=== PATIENT | female | born 1935 | race Caucasian/White ===

== ENCOUNTER 2024-12-25 11:57 | Emergency (ER) | payer MEDICARE, OTHER, SELFPAY ==
[2024-12-25 12:00] VITALS: BP 124/76
[2024-12-25 12:24] LABS: % Basophils 0.3 % (0-2); % Eosinophils 1.8 % (0-6); % Immature Granulocytes 0.3 % (0-0.5); % Lymphocytes 9.1 % (20.5-51.1); % Monocytes 6.9 % (1.7-9.3); % Neutrophils 81.6 % (42.2-75.2); Absolute Eosinophils 0.1 10^3/uL (0-0.7); Absolute Lymphocytes 0.6 10^3/uL (1.2-3.4); Absolute Monocytes 0.5 10^3/uL (0.1-0.6); Absolute Neutrophils 5.6 10^3/uL (1.4-6.5); Hematocrit 35.3 % (37.0-47.0); Hemoglobin 11.9 g/dL (12.0-16.0); Mean Corp Hgb Conc. 33.7 g/dL (33.0-37.0); Mean Corpuscular Hgb 30.7 pg (27.0-31.0); Nucleated Red Blood Cells % 0 %; Red Blood Cell Count 3.88 10^6/uL (4.20-5.40); Red Cell Dist. Width 13.2 % (11.5-14.5); White Blood Cell Count 6.8 10^3/uL (4.8-10.8)
[2024-12-25 12:32] LABS: ALT (SGPT) 13 U/L (0-35); AST (SGOT) 19 U/L (14-36); Albumin 4.2 g/dl (3.5-5.0); Alkaline Phosphatase 81 U/L (38-126); Blood Urea Nitrogen 14 mg/dl (7-17); Calcium 9.5 mg/dl (8.4-10.2); Carbon Dioxide 28 mmol/L (22-30); Chloride 98 mmol/L (98-107); Glucose 135 mg/dl (70-99); Sodium 135 mmol/L (135-145); Total Bilirubin 1.2 mg/dl (0.2-1.3); Total Protein 6.6 g/dl (6.3-8.2); eGFR > 60.00
[2024-12-25 13:26] LABS: Mean Platelet Volume 10.7 fL (7.4-10.4); Platelet Count 83 10^3/uL (130-400)
[2024-12-25] MEDS: NSS 1000 IV (15:44)
[2024-12-25] MEDS: ZOFRAN 4 MG IV (15:45)
--- NOTE | 2024-12-25 15:47 | ED.GENMED ---
History of Present Illness
General
Chief Complaint: Dizziness
Source: patient and family
Exam Limitations: none
Time Seen by Provider: 12/25/24 15:07
Nursing documentation reviewed up to this point in time: agreed with
History of Present Illness
History of Present Illness:
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
vomiting. Denies chest pain shortness of breath numbness weakness symptoms resolved and resting
Review of Systems
Review of Systems
Allergies reviewed?: Yes
All Other Systems: ROS reviewed and negative except as documented in HPI and ROS
Phy Exam
Physical Exam
Physical Exam:
GENERAL: Alert , in no apparent distress
EYE: pupils equal and reactive
NECK: Supple, no significant adenopathy.
ENT: o/p clr, mmm.
CARDIAC: Regular rate and rhythm .
LUNGS: Clear breath sounds bilaterally, no acute respiratory distress, no wheezes/rales/rhonchi
ABDOMEN: Soft, without focal tenderness, no r/g, no cvat
NEUROLOGICAL: Alert and oriented, no focal neuro deficits 5 out of 5 upper and lower extremity strength normal sensation with palpating bilaterally normal finger-nose and [id number] no pronator drift
SKIN: Warm and dry, skin intact.
MUSCULOSKELETAL: No edema, well perfused.
PSYCH: Normal and appropriate interaction.
Course
Orders/Labs/Results
Orders:
Orders
12/25/24 12:03
EKG [Electrocardiogram (*1)] Urgent
Reason for Study: Vertigo / Dizzy
12/25/24 12:04
EKG- Treatment ONCE
12/25/24 12:11
CBC/With Diff [Complete Blood Count/With Diff] Urgent
Comprehensive Metabolic Panel Urgent
12/25/24 15:37
CT Head W/o Iv Contrast Urgent
Comment:
Reason For Exam: dizzy hx of CA/mets
0.9% Sodium Chloride 1000 ml [Nss] 1,000 ml IV BOLUS
Ondansetron Injectable [Zofran] 4 mg IV NOW STA
Pt Eval And Treat Urgent
Activity Level: Ambulate
12/25/24 17:03
Urinalysis Reflex To Culture Urgent
Date Specimen was Collected: 12/25/24
Time Specimen was Collected: 16:52
Urine Microscopic Reflex Cult Urgent
Urine Culture Urgent
AMANDA Source: U
Specimen Description:
Date Specimen was Collected: 12/25/24
Time Specimen was Collected: 16:52
12/25/24 17:34
Meclizine [Antivert] 25 mg PO NOW STA
Abnormal Lab Results
12/25/24 12/25/24
12:11 17:03
RBC 3.88 L 10^6/uL
(4.20-5.40)
Hgb 11.9 L g/dL
(12.0-16.0)
Hct 35.3 L %
(37.0-47.0)
Plt Count 83 L 10^3/uL
(130-400)
MPV 10.7 H fL
(7.4-10.4)
Absolute Lymphs (auto) 0.6 L 10^3/uL
(1.2-3.4)
Neutrophils % 81.6 H %
(42.2-75.2)
Lymphocytes % 9.1 L %
(20.5-51.1)
Glucose 135 H mg/dl
(70-99)
Ur Occult Blood Reflex 4+ A
(Negative)
Urine Nitrite (Reflex) Positive A
(Negative)
Leukocyte Esterase Rfl 3+ A
(Negative)
Urine RBC 16-20 A /HPF
(0-2)
Urine WBC (Reflex) 80-90 A /HPF
(0-5)
Urine Bacteria (Reflex) Many A
(Negative)
Urine Albumin (Reflex) 2+ A
(Neg - Trace)
12/25/24 12:11
12/25/24 12:11
Vital Signs
Initial and Last Documented VS:
Initial Vital Signs
Temp Pulse Resp BP Pulse Ox
98 F 96 16 124/76 98
12/25/24 12:00 12/25/24 12:00 12/25/24 12:00 12/25/24 12:00 12/25/24 12:00
Last Documented Vital Signs
Temp Pulse Resp BP Pulse Ox
98 F 81 20 132/78 98
12/25/24 12:00 12/25/24 18:30 12/25/24 18:30 12/25/24 18:00 12/25/24 18:30
MDM/Problems Addressed
MDM/Problems Addressed:
89-year-old female presenting to the emergency department today with concerns of room spinning dizziness starting yesterday morning associated nausea no vomiting no chest pain or shortness of breath. On arrival vital signs are normal patient no
distress asymptomatic while sitting still. Labs unremarkable. EKG normal. CT without emergent findings urinalysis potentially consistent with UTI patient was started on Keflex. Otherwise here patient was given symptomatic treatment. She was
initially assessed by PT and they were concerned that she was having some ongoing symptoms. She would become asymptomatic at rest and gets symptoms only with certain positioning's making central process less likely. She was then given meclizine
and claims that the symptoms were significantly improved and felt well she was requesting to go home. It was explained to her that some of the findings on her exam had some concern that may require additional testing. It was recommended to stay in
the hospital. She demonstrated strong desire to go home risks of this were discussed with the patient she will be leaving with her daughter who will be staying with her and able to help her 05/05. If any symptoms worsen she claimed that she would
immediately return otherwise we will follow-up closely as an outpatient.
*Critical Care Note
Total Time (30-74mins, 75-104mins- exclusive of procedures): Not Applicable
ED Attending Note
-
Portions of this chart may have been created with voice recognition software.� Occasional wrong word or��sound alike� substitutions may have occurred due to the inherent limitations of voice recognition software.
Discharge Plan
Departure
Patient Disposition: Home (Routine Discharge)
Date of Disposition: 12/25/24
Time of Disposition: 19:01
Patient with high blood pressure during this ER visit?: No
Condition: Good
Covid-19: Not Applicable
Discharge Problem:
Vertigo, Acute UTI
Instructions: Vertigo (a Type of Dizziness) (DC), Urinary tract infection - Discharge instructions
Prescriptions:
New
meclizine 50 mg tablet
50 mg PO BID PRN (Reason: dizziness) Qty: 10 0RF
cephalexin 500 mg capsule
500 mg PO TID 5 Days Qty: 15 0RF
Referrals:
Glenn Olivares MD [Active] - Follow up in 1 week
UNKNOWN - PT DOES,NOT KNOW [Family Provider] -
Activity Restrictions/Additional Instructions:
You came to the emergency department today for concerns of dizziness. Here you had a reassuring assessment with CT scan and labs. You did have improvement of symptoms here. If symptoms are worsening or progressing at any point please immediately
return to the ER. Otherwise follow-up closely with ENT. He also may have a UTI. Please take Keflex 3 times daily for the next 5 days and follow-up closely as an outpatient. Return for any worsening, new or concerning symptoms.
Interventions
Interventions:
*Risk Screen - Suicide Last Done: 12/25/24 12:00
*General Assessment Last Done: 12/25/24 15:51
*Neglect/Abuse Screening Last Done: 12/25/24 12:00
*ED- Fall Risk Assessment Last Done: 12/25/24 15:51
*ED COVID-19 Vaccine History Last Done: 12/25/24 15:51
ED- Neurological Assessment Last Done: 12/25/24 15:55
ED- Cardiac Assessment Last Done: 12/25/24 15:55
Discharge Date and Time
Print Language: PAKISTANI
[2024-12-25 15:49] VITALS: BP 113/76
[2024-12-25 15:51] VITALS: BMI 22.3
[2024-12-25 16:00] VITALS: BP 118/71
[2024-12-25 16:46] VITALS: BP 130/71
[2024-12-25 16:54] VITALS: BP 162/83
[2024-12-25 17:21] LABS: Urine Albumin 2+ (Neg - Trace); Urine Bilirubin Negative (Negative); Urine Character Slightly Cloudy (Clear); Urine Color Yellow; Urine Glucose Negative (Negative); Urine Ketone Negative (Negative); Urine Leukocyte 3+ (Negative); Urine Nitrite Positive (Negative); Urine Occult Blood 4+ (Negative); Urine Specific Gravity 1.015 (<1.030); Urine Urobilinogen Negative (Neg - 1+); Urine pH 6.5 (5.0-9.0)
[2024-12-25 17:26] LABS: Urine Amorphous Seen; Urine Squamous Cell 0-2 /LPF (Few)
[2024-12-25 17:27] LABS: Urine Bacteria Many (Negative); Urine Red Blood Cell 16-20 /HPF (0-2); Urine White Cell 80-90 /HPF (0-5)
[2024-12-25] MEDS: ANTIVERT 25 MG PO (17:37)
[2024-12-25 18:00] VITALS: BP 132/78
== END 2024-12-25 19:16 | disposition home or self-care (01) ==
LOC: EMR 11:57
PROVIDERS: Emergency Medicine; Physician Assistant; EMERGENCY PHYSICIAN Emergency Medicine
DX: R42 Dizziness and giddiness (principal); N39.0 Urinary tract infection, site not specified; K58.9 Irritable bowel syndrome, unspecified; Z85.118 Personal history of other malignant neoplasm of bronchus and lung
CPT/HCPCS: 99284; 96374; 96361; 70450; 80053; 81003; 81015; 85025; 87086; 87088; 87186; 93005